=== PATIENT | female | born 1950 | race Caucasian/White ===

== ENCOUNTER 2016-11-30 06:44 | Emergency (ER) | payer OTHER ==
[~2016-11-30 06:44] MED LIST: ASPIR 8181 MG PO; GLUCOPHAGE 500500 MG PO; NORCO 5-325 TA1 EACH PO; ZESTRIL5 MG PO
== END 2016-11-30 12:29 | disposition home or self-care (01) ==
LOC: ER1 06:44
DX: M54.16 Radiculopathy, lumbar region (principal); M62.830 Muscle spasm of back; E11.40 Type 2 diabetes mellitus with diabetic neuropathy, unspecified; F17.210 Nicotine dependence, cigarettes, uncomplicated
CPT/HCPCS: 72131; 96372; 99283; J2930

== ENCOUNTER 2017-01-08 10:22 | Emergency (ER) | payer OTHER ==
[2017-01-08 11:15] LABS: HEMOGLOBIN 15.8 gm/dl (12.3-15.3); RED BLOOD COUNT 5.18 M/UL (4.00-5.10)
[2017-01-08 11:34] LABS: BUN/CREATININE RATIO 24 (0-10)
== END 2017-01-08 12:25 | disposition home or self-care (01) ==
LOC: ER1 10:22
PROVIDERS: Physician Assistant
DX: J11.1 Influenza due to unidentified influenza virus with other respiratory manifestations (principal); E11.9 Type 2 diabetes mellitus without complications; I10 Essential (primary) hypertension; F17.210 Nicotine dependence, cigarettes, uncomplicated; Z79.84 Long term (current) use of oral hypoglycemic drugs; Z90.49 Acquired absence of other specified parts of digestive tract
CPT/HCPCS: 36415; 71020; 80053; 84484; 85025; 93005; 99283

== ENCOUNTER 2020-11-15 17:20 | Emergency (ER) | payer BC, MEDICARE ==
[~2020-11-15 17:20] MED LIST changes: +ATORVASTATIN CA40 MG PO; +FLEXERIL 10 MG10 MG PO; -GLUCOPHAGE 500500 MG PO; +GLUCOPHAGE1000 MG PO; +IBUPROFEN600 MG PO; +LISINOPRIL5 MG PO; +LOPRESSOR 25 MG25 MG PO; +TOPROL XL25 MG PO; +TORADOL 10 MG T10 MG PO
[2020-11-15 19:33] LABS: HEMOGLOBIN 12.1 gm/dl (12.3-15.3); RED BLOOD COUNT 4.76 M/UL (4.00-5.10); WHITE BLOOD COUNT 4.8 K/UL (4.5-11.0)
[2020-11-15 20:02] LABS: BUN/CREATININE RATIO 18 (0-10)
[2020-11-15] MEDS ORDERED: DOXYCYCLINE MO100 MG PO (23:35)
[2020-11-15] MEDS ORDERED: VENTOLIN HFA 66.7 GM INH (23:35)
== END 2020-11-15 23:55 | disposition home or self-care (01) ==
LOC: ER1 17:20
PROVIDERS: Physician Assistant
DX: U07.1 COVID-19 (principal); J12.82 Pneumonia due to coronavirus disease 2019; I25.10 Atherosclerotic heart disease of native coronary artery without angina pectoris; I25.2 Old myocardial infarction; E11.9 Type 2 diabetes mellitus without complications; E78.5 Hyperlipidemia, unspecified; I11.9 Hypertensive heart disease without heart failure; Z90.49 Acquired absence of other specified parts of digestive tract; Z95.1 Presence of aortocoronary bypass graft; Z79.84 Long term (current) use of oral hypoglycemic drugs
CPT/HCPCS: 0240U; 36415; 71045; 80053; 81001; 82550; 82553; 83735; 83874; 83880; 84484; 85025; 85379; 85610; 85730; 87086; 96374; 99285; J1100; Q9967

== ENCOUNTER 2020-11-19 08:18 | Inpatient (IN) | payer BC, MEDICARE ==
[~2020-11-19] VITALS: Ht 160 cm; Wt 97.1 kg
[~2020-11-19 08:18] MED LIST changes: +DOXYCYCLINE MO100 MG PO; +VENTOLIN HFA 66.7 GM INH
[2020-11-19 08:50] LABS: HEMOGLOBIN 12.7 gm/dl (12.3-15.3); RED BLOOD COUNT 5.06 M/UL (4.00-5.10); WHITE BLOOD COUNT 3.7 K/UL (4.5-11.0)
[2020-11-19 09:21] LABS: BUN/CREATININE RATIO 21 (0-10)
[2020-11-19] MEDS ORDERED: LOPRESSOR 25 MG25 MG PO (11:43)
[2020-11-19] MEDS ORDERED: LIPITOR20 MG PO (11:43)
[2020-11-19] MEDS ORDERED: PLAVIX75 MG PO (11:43)
[2020-11-20 07:50] LABS: HEMOGLOBIN 11.4 gm/dl (12.3-15.3); RED BLOOD COUNT 4.57 M/UL (4.00-5.10); WHITE BLOOD COUNT 2.4 K/UL (4.5-11.0)
[2020-11-20 08:32] LABS: BUN/CREATININE RATIO 25 (0-10)
[2020-11-21 04:42] LABS: HEMOGLOBIN 11.1 gm/dl (12.3-15.3); RED BLOOD COUNT 4.52 M/UL (4.00-5.10)
[2020-11-21 04:54] LABS: WHITE BLOOD COUNT 4.2 K/UL (4.5-11.0)
[2020-11-21 04:59] LABS: BUN/CREATININE RATIO 29 (0-10)
[2020-11-22 02:09] LABS: RED BLOOD COUNT 4.76 M/UL (4.00-5.10)
[2020-11-22 02:13] LABS: WHITE BLOOD COUNT 7.7 K/UL (4.5-11.0)
[2020-11-22 02:28] LABS: BUN/CREATININE RATIO 28 (0-10)
[2020-11-23 04:22] LABS: HEMOGLOBIN 11.3 gm/dl (12.3-15.3); RED BLOOD COUNT 4.57 M/UL (4.00-5.10)
[2020-11-23 04:49] LABS: BUN/CREATININE RATIO 30 (0-10)
--- NOTE | 2020-11-24 03:45 | NUR ---
PT PLACED ON WAFFLE MATTRESS TO REDUCE PRESSURE ON COCCYX. SKIN DISCOLORED SLIGHTLY ON RIGHT AND LEFT INNER BUTTOCK NEAR COCCYX. APPEARS TO BE A DTI. UNABLE TO LOCATE THE CAMERA OR CARD FOR A PICTURE. WILL PASS ON IN REPORT TO NEXT RN CARING FOR PATIENT TO TRY AND OBTAIN A PICTURE OF COCCYX FOR PT CHART.
[2020-11-24 05:27] LABS: HEMOGLOBIN 11.7 gm/dl (12.3-15.3); RED BLOOD COUNT 4.67 M/UL (4.00-5.10); WHITE BLOOD COUNT 5.7 K/UL (4.5-11.0)
[2020-11-24 05:55] LABS: BUN/CREATININE RATIO 31 (0-10)
--- NOTE | 2020-11-24 06:09 | NUR ---
pt placed on wale
[2020-11-25 05:55] LABS: HEMOGLOBIN 12.4 gm/dl (12.3-15.3); RED BLOOD COUNT 4.94 M/UL (4.00-5.10)
[2020-11-25 05:57] LABS: WHITE BLOOD COUNT 7.5 K/UL (4.5-11.0)
[2020-11-25 06:16] LABS: BUN/CREATININE RATIO 44 (0-10)
[2020-11-26 05:52] LABS: HEMOGLOBIN 12.7 gm/dl (12.3-15.3); RED BLOOD COUNT 5.09 M/UL (4.00-5.10)
[2020-11-26 06:42] LABS: BUN/CREATININE RATIO 51 (0-10)
[2020-11-26 16:53] LABS: HEMOGLOBIN 13.4 gm/dl (12.3-15.3)
[2020-11-26 17:08] LABS: BUN/CREATININE RATIO 59 (0-10)
[2020-11-27 05:34] LABS: HEMOGLOBIN 12.9 gm/dl (12.3-15.3); RED BLOOD COUNT 5.19 M/UL (4.00-5.10); WHITE BLOOD COUNT 8.7 K/UL (4.5-11.0)
[2020-11-27 06:01] LABS: BUN/CREATININE RATIO 65 (0-10)
[2020-11-28 02:29] LABS: HEMOGLOBIN 12.1 gm/dl (12.3-15.3); RED BLOOD COUNT 4.87 M/UL (4.00-5.10); WHITE BLOOD COUNT 10.5 K/UL (4.5-11.0)
[2020-11-28 02:48] LABS: BUN/CREATININE RATIO 65 (0-10)
--- NOTE | 2020-11-28 15:56 | NUR ---
reciecved report from Gabby RN, pt coming to med surg 4
[2020-11-29 09:44] LABS: HEMOGLOBIN 12.3 gm/dl (12.3-15.3); RED BLOOD COUNT 4.91 M/UL (4.00-5.10); WHITE BLOOD COUNT 10.2 K/UL (4.5-11.0)
[2020-11-29 10:15] LABS: BUN/CREATININE RATIO 50 (0-10)
[2020-11-30 06:09] LABS: HEMOGLOBIN 11.3 gm/dl (12.3-15.3); RED BLOOD COUNT 4.53 M/UL (4.00-5.10); WHITE BLOOD COUNT 9.1 K/UL (4.5-11.0)
[2020-11-30 06:26] LABS: BUN/CREATININE RATIO 44 (0-10)
[2020-12-01 06:38] LABS: HEMOGLOBIN 10.4 gm/dl (12.3-15.3); RED BLOOD COUNT 4.14 M/UL (4.00-5.10); WHITE BLOOD COUNT 7.8 K/UL (4.5-11.0)
[2020-12-01 06:59] LABS: BUN/CREATININE RATIO 32 (0-10)
--- NOTE | 2020-12-01 14:41 | NUR ---
PT SAT PATIENT IN THE CHAIR, OXYGEN WAS REMOVED AT THAT TIME AND PATIENT REMAINED WITH SATS GREATER THAN 92% ON ROOM AIR. APPROXIMATELY 30 MINUTES LATER WE PLACED THE PATIENT BACK IN BED AND HER OXYGEN IS AT 94%, NO SS OF RESPIRATORY DISTRESS.
[2020-12-02 06:08] LABS: HEMOGLOBIN 9.9 gm/dl (12.3-15.3); RED BLOOD COUNT 3.9 M/UL (4.00-5.10); WHITE BLOOD COUNT 8.5 K/UL (4.5-11.0)
[2020-12-02 06:16] LABS: BUN/CREATININE RATIO 33 (0-10)
[2020-12-02 17:11] LABS: BUN/CREATININE RATIO 30 (0-10)
[2020-12-03 02:53] LABS: HEMOGLOBIN 9.3 gm/dl (12.3-15.3); RED BLOOD COUNT 3.73 M/UL (4.00-5.10)
[2020-12-03 04:02] LABS: BUN/CREATININE RATIO 27 (0-10)
[2020-12-05 02:40] LABS: HEMOGLOBIN 8.8 gm/dl (12.3-15.3); RED BLOOD COUNT 3.45 M/UL (4.00-5.10); WHITE BLOOD COUNT 6.1 K/UL (4.5-11.0)
[2020-12-05 03:02] LABS: BUN/CREATININE RATIO 16 (0-10)
[2020-12-06 06:43] LABS: HEMOGLOBIN 9.1 gm/dl (12.3-15.3); RED BLOOD COUNT 3.71 M/UL (4.00-5.10); WHITE BLOOD COUNT 5.5 K/UL (4.5-11.0)
[2020-12-06 07:16] LABS: BUN/CREATININE RATIO 17 (0-10)
[2020-12-07 07:03] LABS: HEMOGLOBIN 8.8 gm/dl (12.3-15.3); RED BLOOD COUNT 3.48 M/UL (4.00-5.10); WHITE BLOOD COUNT 5.8 K/UL (4.5-11.0)
[2020-12-07 07:26] LABS: BUN/CREATININE RATIO 24 (0-10)
[2020-12-07 14:33] LABS: ADENOVIRUS F 40/41 Not Detected (Negative); ASTROVIRUS Not Detected (Negative); CAMPYLOBACTER Not Detected (Negative); CLOSTRIDIUM DIFFICILE TOX A/B Not Detected (Negative); CRYPTOSPORIDIUM Not Detected (Negative); E.COLI 0157 Not Detected (Negative); ENTAMOEBA HISTOLYTICA Not Detected (Negative); ENTEROAGGREGATIVE E.COLI (EAEC Not Detected (Negative); ENTEROPATHOGENIC E.COLI (EPEC) Not Detected (Negative); ENTEROTOXIGENIC E.COLI (ETEC) Not Detected (Negative); GIARDIA LAMBLIA Not Detected (Negative); NOROVIRUS GI/GII Not Detected (Negative); PLESIOMONAS SHIGELLOIDES Not Detected (Negative); ROTOVIRUS A Not Detected (Negative); SALMONELLA Not Detected (Negative); SAPOVIRUS Not Detected (Negative); SHIG/ENTEROINVAS.ECOLI (EIEC) Not Detected (Negative); SHIGA-LIK TOX.PRO.E.COLI (STEC Not Detected (Negative); VIBRIO Not Detected (Negative); VIBRIO CHOLERAE Not Detected (Negative); YERSINIA ENTEROCOLITICA Not Detected (Negative)
--- NOTE | 2020-12-08 12:46 | NUR ---
INFORMED DR. VALENTINE OF PATIENT REFUSAL TO TAKE GOLYTELY AND SHE STATED SHE WILL TALK TO THE PATIENT .
--- NOTE | 2020-12-08 15:25 | NUR ---
WAITING FOR MEDICATION TO BE SENT BY PHARMACY. DUE AT 1400.
[2020-12-08] MEDS ORDERED: LOPRESSOR 25 MG25 MG PO (16:12)
[2020-12-08] MEDS ORDERED: FERROUS SULFAT325 M2 PO (16:12)
[2020-12-08] MEDS ORDERED: FUROSEMIDE20 MG PO (16:12)
[2020-12-08] MEDS ORDERED: PROTONIX 40 MG40 M1 PO (16:12)
[2020-12-08] MEDS ORDERED: LISINOPRIL10 MG PO (16:12)
[2020-12-08] MEDS ORDERED: ASPIRIN81 MG PO (16:12)
[2020-12-08] MEDS ORDERED: MAGIC BUTT CREAM TOP (16:12)
[2020-12-08] MEDS ORDERED: JANUVIA 100 MG100 MG PO (16:13)
[2020-12-08] MEDS ORDERED: POTASSIUM CHLO10 MEQ PO (16:21)
--- NOTE | 2020-12-08 17:06 | NUR ---
PATIENT REFUSED EGD/COLONOSCOPY. NOTIFIED DR. VALENTINE AND DAUGHTER.
--- NOTE | 2020-12-09 11:35 | NUR ---
REPORTED TO KELTON OF PATIENT EPISODE OF [facility] THIS AM PER TELEMETRY REPORT SHOWED THE TELEMETRY STRIPS. PATIENT CONTINUE TO USE LIFE VEST
== END 2020-12-09 14:42 | disposition home health service (06) | DRG 871 ==
LOC: ER1 08:18 → CDU 11:16 → 2 EAST 11:16 → MED SURG 4 11:16 → 2 EAST 11-22 00:55 → PROG CARE 11-27 19:45 → MED SURG 4 11-28 16:23
PROVIDERS: Family Medicine; Internal Medicine; ADMIT Internal Medicine
PROC: 8E0ZXY6 Isolation (ICD-10-PCS; principal; 2020-11-19)
PROC: XW033E5 Introduction of Remdesivir Anti-infective into Peripheral Vein, Percutaneous Approach, New Technology Group 5 (ICD-10-PCS; 2020-11-19)
PROC: 05HM33Z Insertion of Infusion Device into Right Internal Jugular Vein, Percutaneous Approach (ICD-10-PCS; 2020-11-22)
PROC: B543ZZA Ultrasonography of Right Jugular Veins, Guidance (ICD-10-PCS; 2020-11-22)
PROC: 5A1945Z Respiratory Ventilation, 24-96 Consecutive Hours (ICD-10-PCS; 2020-11-22)
PROC: 0BH17EZ Insertion of Endotracheal Airway into Trachea, Via Natural or Artificial Opening (ICD-10-PCS; 2020-11-22)
PROC: 3E0G76Z Introduction of Nutritional Substance into Upper GI, Via Natural or Artificial Opening (ICD-10-PCS; 2020-11-24)
PROC: 5A0945A Assistance with Respiratory Ventilation, 24-96 Consecutive Hours, High Flow/Velocity Cannula (ICD-10-PCS; 2020-11-25)
PROC: B24BZZZ Ultrasonography of Heart with Aorta (ICD-10-PCS; 2020-12-02)
DX: A41.89 Other specified sepsis (principal); U07.1 COVID-19; J12.82 Pneumonia due to coronavirus disease 2019; R65.21 Severe sepsis with septic shock; J15.9 Unspecified bacterial pneumonia; I21.A1 Myocardial infarction type 2; J80 Acute respiratory distress syndrome; I50.23 Acute on chronic systolic (congestive) heart failure; K92.2 Gastrointestinal hemorrhage, unspecified; I47.2 Ventricular tachycardia; D61.818 Other pancytopenia; E87.3 Alkalosis; D62 Acute posthemorrhagic anemia; I25.5 Ischemic cardiomyopathy; I25.10 Atherosclerotic heart disease of native coronary artery without angina pectoris; I44.7 Left bundle-branch block, unspecified; I48.91 Unspecified atrial fibrillation; E78.5 Hyperlipidemia, unspecified; E11.9 Type 2 diabetes mellitus without complications; F17.210 Nicotine dependence, cigarettes, uncomplicated; D50.9 Iron deficiency anemia, unspecified; I27.20 Pulmonary hypertension, unspecified; I11.0 Hypertensive heart disease with heart failure; L89.152 Pressure ulcer of sacral region, stage 2; R00.1 Bradycardia, unspecified; Z68.37 Body mass index [BMI] 37.0-37.9, adult; Z95.1 Presence of aortocoronary bypass graft; Z95.2 Presence of prosthetic heart valve; Z91.19 Patient's noncompliance with other medical treatment and regimen; Z82.49 Family history of ischemic heart disease and other diseases of the circulatory system; Z82.3 Family history of stroke; Z83.3 Family history of diabetes mellitus; Z84.89 Family history of other specified conditions; Z79.02 Long term (current) use of antithrombotics/antiplatelets; Z79.899 Other long term (current) drug therapy; E66.01 Morbid (severe) obesity due to excess calories; K52.9 Noninfective gastroenteritis and colitis, unspecified
CPT/HCPCS: ECHO; 31500; 36415; 36600; 71045; 80048; 80053; 80202; 82550; 82553; 82728; 82803; 82962; 83605; 83735; 83880; 84132; 84439; 84443; 84484; 85014; 85018; 85025; 85027; 85379; 85610; 85730; 87040; 87070; 87205; 87449; 87507; 92526; 92610; 93005; 93306; 94002; 94003; 94640; 94760; 96365; 96366; 96368; 96372; 96375; 96376; 97110; 97116-GP-CQ; 97162; 97166; 97530; 97530-GP-CQ; 97535; 99285; A6212; C9113; J0330; J0456; J1100; J1205; J1650; J1940; J2270; J2405; J2543; J2704; J3370; J3475; J7030; J7070; J7120; U0002

== ENCOUNTER 2021-12-09 15:52 | Emergency (ER) | payer BC, MEDICARE ==
[~2021-12-09 15:52] MED LIST changes: +ASPIRIN81 MG PO; +FERROUS SULFAT325 M2 PO; +FUROSEMIDE20 MG PO; +JANUVIA 100 MG100 MG PO; +LIPITOR20 MG PO; +LISINOPRIL10 MG PO; +MAGIC BUTT CREAM TOP; +PLAVIX75 MG PO; +POTASSIUM CHLO10 MEQ PO; +PROTONIX 40 MG40 M1 PO
[2021-12-09 16:28] LABS: RED BLOOD COUNT 3.97 M/UL (4.00-5.10); WHITE BLOOD COUNT 5.3 K/UL (4.5-11.0)
[2021-12-09 16:32] LABS: HEMOGLOBIN 6.7 gm/dl (12.3-15.3)
[2021-12-09 16:50] LABS: BUN/CREATININE RATIO 18 (0-10)
== END 2021-12-10 02:00 | disposition short-term general hospital (02) ==
LOC: ER1 15:52
PROVIDERS: Emergency Medicine
DX: K92.2 Gastrointestinal hemorrhage, unspecified (principal); D64.9 Anemia, unspecified; E11.9 Type 2 diabetes mellitus without complications; Z87.891 Personal history of nicotine dependence; Z20.822 Contact with and (suspected) exposure to COVID-19; Z79.84 Long term (current) use of oral hypoglycemic drugs
CPT/HCPCS: 36430; 71046; 80053; 82270; 82550; 82553; 84484; 85025; 85610; 85730; 86850; 86900; 86901; 86920; 93005; 99285; P9016; U0002

== ENCOUNTER 2021-12-18 16:05 | Inpatient (IN) | payer MEDICARE, MEDICAID ==
[~2021-12-18] VITALS: Ht 160 cm; Wt 96.2 kg
[~2021-12-18 16:05] MED LIST changes: -LIPITOR20 MG PO; +LIPITOR40 MG PO
[2021-12-18 16:48] LABS: HEMOGLOBIN 9.4 gm/dl (12.3-15.3); RED BLOOD COUNT 4.77 M/UL (4.00-5.10); WHITE BLOOD COUNT 11.3 K/UL (4.5-11.0)
[2021-12-18 17:14] LABS: BUN/CREATININE RATIO 25 (0-10)
[2021-12-19 05:09] LABS: HEMOGLOBIN 8.2 gm/dl (12.3-15.3); WHITE BLOOD COUNT 8.9 K/UL (4.5-11.0)
[2021-12-19 05:15] LABS: RED BLOOD COUNT 4.14 M/UL (4.00-5.10)
[2021-12-19 05:47] LABS: BUN/CREATININE RATIO 23 (0-10)
[2021-12-19] MEDS ORDERED: PROTONIX 40 MG40 M1 PO (09:51)
[2021-12-19] MEDS ORDERED: METOPROLOL TART25 MG PO (09:51)
[2021-12-19] MEDS ORDERED: ASPIRIN EC81 MG PO (09:52)
[2021-12-20 01:34] LABS: CANDIDA ALBICANS Not Detected (Negative); CANDIDA KRUSEI Not Detected (Negative); CANDIDA TROPICALIS Not Detected (Negative); ESCHERICHIA COLI Not Detected (Negative); HAEMOPHILUS INFLUENZAE Not Detected (Negative); KLEBSIELLA OXYTOCA Not Detected (Negative); KLEBSIELLA PNEUMONIAE Not Detected (Negative); KPC-CARBAPENEM-RESISTANCE GENE Not Detected (Negative); PROTEUS Not Detected (Negative); PSEUDOMONAS AERUGINOSA Not Detected (Negative); SERRATIA MARCESANS Not Detected (Negative); STREP AGALACTIAE (GROUP B) Not Detected (Negative); STREP PYOGENES (GROUP A) Not Detected (Negative); STREPTOCOCCUS Not Detected (Negative); vanA/B (VANCOMYCIN RESIST GENE Not Detected (Negative)
[2021-12-20 02:14] LABS: BUN/CREATININE RATIO 26 (0-10)
[2021-12-20 03:04] LABS: STAPHYLOCOCCUS DETECTED (Negative); STAPHYLOCOCCUS AUREUS DETECTED (Negative)
[2021-12-20 07:06] LABS: HEMOGLOBIN 7.8 gm/dl (12.3-15.3); RED BLOOD COUNT 4.04 M/UL (4.00-5.10); WHITE BLOOD COUNT 9.6 K/UL (4.5-11.0)
[2021-12-21 04:40] LABS: HEMOGLOBIN 8.8 gm/dl (12.3-15.3); WHITE BLOOD COUNT 7.9 K/UL (4.5-11.0)
[2021-12-21 04:43] LABS: RED BLOOD COUNT 4.49 M/UL (4.00-5.10)
--- NOTE | 2021-12-21 18:08 | NUR ---
pt called me to her room her heart rate afib in the 140's , dr live at bedside new orders noted .
[2021-12-23 03:42] LABS: BUN/CREATININE RATIO 26 (0-10)
--- NOTE | 2021-12-24 02:25 | NUR ---
APPROX 0150 TECH CAME AND NOTIFIED ME THAT PT CALLED OUT AND SHE WENT TO CHECK ON PT. PT STATED TO HER '' DO YOU SEE IT?" AND TECH STATED SHE SAID '' DO I SEE WHAT?" PT STATED THIS SEVERAL TIMES TO TECH. TECH STATED PT STARTED GETTING RUDE WITH HER AND TECH STATED SHE TOLD PT SHE WAS JUST THERE TO HELP HER. PT TOLD TECH TO LEAVE ROOM. AFTER THIS INCIDENT ANOTHER TECH WENT INTO ROOM AND PT REQUESTED FOR 1ST TECH NOT TO BE BACK IN HER ROOM AND WANTED [facility] CALLED. 2ND TECH CALLED [facility]. APPROX 0220 [facility] CAME TO TALK TO PT AND PT WAS ASLEEP.
[2021-12-24 03:34] LABS: BUN/CREATININE RATIO 23 (0-10)
[2021-12-24] MEDS ORDERED: ALDACTONE 25MG25 MG PO (11:43)
[2021-12-24] MEDS ORDERED: DICLOXACILLIN500 MG PO (11:43)
[2021-12-24] MEDS ORDERED: LOPRESSOR 50 MG50 MG PO (11:43)
[2021-12-24] MEDS ORDERED: DIGOXIN250 MCG PO (11:43)
[2021-12-24] MEDS ORDERED: FUROSEMIDE20 MG PO (11:43)
[2021-12-24] MEDS ORDERED: COZAAR 50MG TAB50 MG PO (11:43)
[2021-12-25 06:47] LABS: BUN/CREATININE RATIO 20 (0-10)
--- NOTE | 2021-12-25 07:31 | NUR ---
DURING SHIFT REPORT CHLOÉ RAI HAD TO GET PT A NEW IV, PT STARTED CALLING NURSE A BITCH AN WHEN TOLD NOT TO TALK TO OUR STAFF IN THAT MANNER SHE STATED SHE DID NOT SAY SUCH A THING.INFORMED [employer] TRUCK [employer]IVER.
[2021-12-28 05:46] LABS: RED BLOOD COUNT 3.98 M/UL (4.00-5.10); WHITE BLOOD COUNT 4.9 K/UL (4.5-11.0)
== END 2021-12-28 14:10 | DRG 193 ==
LOC: ER1 16:05 → MED SURG 4 18:05 → CDU 18:05 → PROG CARE 18:05 → MED SURG 4 12-20 23:00
PROVIDERS: Internal Medicine; Nurse Practitioner; ADMIT Internal Medicine
PROC: 3E03329 Introduction of Other Anti-infective into Peripheral Vein, Percutaneous Approach (ICD-10-PCS; 2021-12-19)
PROC: 0H98XZZ Drainage of Buttock Skin, External Approach (ICD-10-PCS; principal; 2021-12-20)
DX: J18.9 Pneumonia, unspecified organism (principal); I50.23 Acute on chronic systolic (congestive) heart failure; A41.01 Sepsis due to Methicillin susceptible Staphylococcus aureus; C20 Malignant neoplasm of rectum; E87.2 Acidosis; Z20.822 Contact with and (suspected) exposure to COVID-19; L02.31 Cutaneous abscess of buttock; E66.9 Obesity, unspecified; I44.7 Left bundle-branch block, unspecified; E11.9 Type 2 diabetes mellitus without complications; D50.9 Iron deficiency anemia, unspecified; I25.5 Ischemic cardiomyopathy; I11.0 Hypertensive heart disease with heart failure; K21.9 Gastro-esophageal reflux disease without esophagitis; I25.10 Atherosclerotic heart disease of native coronary artery without angina pectoris; I27.20 Pulmonary hypertension, unspecified; I48.0 Paroxysmal atrial fibrillation; Z79.01 Long term (current) use of anticoagulants; Z95.1 Presence of aortocoronary bypass graft; Z95.2 Presence of prosthetic heart valve; Z79.82 Long term (current) use of aspirin; Z88.7 Allergy status to serum and vaccine; Z83.3 Family history of diabetes mellitus; Z82.0 Family history of epilepsy and other diseases of the nervous system; Z91.14 Patient's other noncompliance with medication regimen; Z90.49 Acquired absence of other specified parts of digestive tract; Z68.37 Body mass index [BMI] 37.0-37.9, adult
CPT/HCPCS: 36415; 36600; 71045; 80048; 80053; 80202; 81001; 82378; 82550; 82553; 82728; 82803; 82962; 83540; 83550; 83605; 83735; 83880; 84439; 84443; 84484; 85025; 85610; 85730; 87040; 87070; 87077; 87150; 87186; 87205; 93005; 94760; 96374; 96375; 97162; 97530-GP-CQ; 99285; G0463; J0456; J0692; J0696; J1160; J1940; J2405; J2700; J3370; J7030; J7070; U0002